=== PATIENT | male | born 1950 | race Caucasian/White ===

== ENCOUNTER 2021-06-29 18:14 | Emergency (ER) | payer MEDICARE, OTHER ==
[2021-06-29 19:42] LABS: CORONAVIRUS COVID-19 NAA NEGATIVE (NEGATIVE)
--- NOTE | 2021-06-29 19:52 | EDM.PDOC ---
ED HPI GENERAL MEDICAL PROBLEM - General Chief Complaint: General Stated Complaint: SOB/SENT FROM [facility] Time Seen by Provider: 06/29/21 19:48 - History of Present Illness INITIAL COMMENTS - FREE TEXT/NARRATIVE: Patient reports chronic dyspnea since COVID-19 in 10/2020 Past month has had head congestion with significant mucus/phlegm Associated coughing with retching at times Has had increased dyspnea due to smoke in the area past few days He went to outpatient provider today hoping to get an inhaler for dyspnea Lab tests were performed which showed worsening of kidney function from 2 days ago, and he was then sent to ED He denies acute illness symptoms Denies vomiting or diarrhea Oral intake has been normal He is currently on treatment with losartan, Metformin, and Flomax He denies use of NSAID medications - Related Data Allergies Allergy/AdvReac Type Severity Reaction Status Date / Time atropine [From ] Allergy Cannot Verified 06/29/21 18:42 Remember chlordiazepoxide Allergy Cannot Verified 06/29/21 18:42 [From Librax (with Remember clidinium)] clidinium Allergy Cannot Verified 06/29/21 18:42 [From Librax (with Remember clidinium)] hyoscyamine [From ] Allergy Cannot Verified 06/29/21 18:42 Remember ibuprofen Allergy Itching Verified 06/29/21 18:42 morphine Allergy Cannot Verified 06/29/21 18:42 Remember phenobarbital [From ] Allergy Cannot Verified 06/29/21 18:42 Remember scopolamine [From ] Allergy Cannot Verified 06/29/21 18:42 Remember Home Meds: Home Meds Losartan [Cozaar] 1 tab PO DAILY 06/29/21 [History] Tamsulosin [Flomax] 1 tab PO DAILY 06/29/21 [History] metFORMIN [Glucophage] 2 tab PO DAILY 06/29/21 [History] Past Medical History Cardiovascular History: Reports: Hypertension Gastrointestinal History: Reports: Other (See Below) Other Gastrointestinal History: partial removal of pancreas, 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 Genitourinary History: Reports: Prostate Disorder Endocrine/Metabolic History: Reports: Diabetes Mellitus, Type 3c - Infectious Disease History Infectious Disease History: Reports: Measles, Mumps, Novel Coronavirus - Past Surgical History GI Surgical History: Reports: Cholecystectomy Social & Family History - Tobacco Use Tobacco Use Status *Q: Never Tobacco User - Caffeine Use Caffeine Use: Reports: Soda - Recreational Drug Use Recreational Drug Use: No ED ROS GENERAL - Review of Systems Review Of Systems: See Below Free Text/Narrative/Comment: Constitutional - no fever Eyes - no eye pain; no visual disturbance ENT - no rhinorrhea; congestion; no epistaxis Cardiovascular - no chest pain Respiratory - shortness of breath; cough Gastrointestinal - no abdominal pain; no nausea; no vomiting; no diarrhea Genitourinary - no dysuria Musculoskeletal - no neck pain; no back pain; no extremity injury Neurological - no headache; no speech disturbance; no weakness ED EXAM, GENERAL - Physical Exam Exam: See Below Free Text/Narrative:: Constitutional - awake; alert; no acute distress Head - no facial swelling or weakness Eyes - extra ocular motion intact; conjunctiva normal ENT - no nasal deformity; no epistaxis; normal phonation Neck - no swelling Respiratory - normal respiratory effort; no crackles or wheezing; no stridor Cardiovascular - regular rhythm; normal rate; S1; S2; grade 1/6 systolic murmur GI/Abdomen - normal bowel sounds; soft; no tenderness; no rebound; no guarding; no mass Musculoskeletal - grossly normal strength and motion; no swelling or deformity Skin - warm; dry Neurologic - normal speech; no weakness Psychiatric - normal mood and affect; memory and attention normal Course - Vital Signs Text/Narrative:: . Considered etiologies included: Chronic dyspnea, cough, allergies, nasal congestion, renal insufficiency, acute kidney injury, dehydration, medication effect Symptoms and examination were discussed Consideration for possible contributing role of losartan in renal impairment was discussed Lab reports provided by patient showed: 06/29/2021: - BUN 45 - Creatinine 3.4 06/27/21: - BUN 35 - Creatinine 2.31 Empiric treatment was provided with IV fluid infusion Repeat imaging panel showed mild improvement in serum creatinine Patient subsequently left ED prior to review by science writer Last Recorded V/S: Last Vital Signs Temp 36.8 C 06/29/21 18:33 Pulse 94 06/29/21 18:33 Resp 20 06/29/21 18:33 BP 130/84 06/29/21 18:33 Pulse Ox 100 06/29/21 18:33 - Orders/Labs/Meds Labs: Laboratory Tests 06/29/21 06/29/21 Range/Units 18:51 21:55 Sodium 138 (136-145) mEq/L Potassium 4.4 (3.5-5.1) mEq/L Chloride 105 (98-107) mEq/L Carbon Dioxide 22 (21-32) mEq/L Anion Gap 15.4 H (5-15) BUN 49 H (7-18) mg/dL Creatinine 3.1 H (0.7-1.3) mg/dL Est Cr Clr Drug Dosing 21.45 mL/min Estimated GFR (MDRD) 20 (>60) mL/min BUN/Creatinine Ratio 15.8 (14-18) Glucose 161 H (70-99) mg/dL Calcium 8.0 L (8.5-10.1) mg/dL Total Bilirubin 0.2 (0.2-1.0) mg/dL AST 16 (15-37) U/L ALT 23 (16-63) U/L Alkaline Phosphatase 120 H (46-116) U/L Total Protein 6.6 (6.4-8.2) g/dl Albumin 3.3 L (3.4-5.0) g/dl Globulin 3.3 gm/dL Albumin/Globulin Ratio 1.0 (1-2) Influenza Type A RNA Negative (NEGATIVE) Influenza Type B RNA Negative (NEGATIVE) SARS-CoV-2 RNA (HERIBERTO) Negative (NEGATIVE) Meds: Medications Discontinued Medications Generic Name Dose Route Start Last Admin Trade Name Freq PRN Reason Stop Dose Admin Albuterol 0 gm 06/29/21 23:10 06/29/21 23:16 Albuterol 6.7 Gm Inhaler INH 06/29/21 23:11 2 puff ONETIME ONE Administration Lactated Ringer's 1,000 mls @ 1,000 mls/hr 06/29/21 20:17 06/29/21 20:32 Ringers, Lactated IV 06/29/21 21:16 1,000 mls/hr .BOLUS ONE Administration Lactated Ringer's 1,000 mls @ 1,000 mls/hr 06/29/21 21:42 06/29/21 21:48 Ringers, Lactated IV 06/29/21 22:41 1,000 mls/hr .BOLUS ONE Administration Departure - Departure Time of Disposition: 21:48 Disposition: Home, Self-Care 01 Clinical Impression: Renal insufficiency, Chronic dyspnea - Discharge Information *PRESCRIPTION DRUG MONITORING PROGRAM REVIEWED*: Not Applicable *COPY OF PRESCRIPTION DRUG MONITORING REPORT IN PATIENT NESTOR: Not Applicable Instructions: Serum Creatinine Test Referrals: Luis Frances MD [Primary Care Provider] - Forms: ED Department Discharge Sepsis Event Note (ED) - Evaluation Sepsis Screening Result: No Definite Risk - Focused Exam Vital Signs: Vital Signs Temp Pulse Resp BP Pulse Ox 06/29/21 18:33 36.8 C 94 20 130/84 100
[2021-06-29] MEDS ORDERED: Lactated Ringers 1,000 ML IV ONE ×2 (20:17→21:42)
[2021-06-29] MEDS ORDERED: Albuterol 6.7 GM Inhaler INH ONE (23:10)
== END 2021-06-29 23:20 | disposition home or self-care (01) ==
LOC: JD.ED 18:14
DX: R06.02 Shortness of breath (principal); I12.9 Hypertensive chronic kidney disease with stage 1 through stage 4 chronic kidney disease, or unspecified chronic kidney disease; E13.22 Other specified diabetes mellitus with diabetic chronic kidney disease; N18.9 Chronic kidney disease, unspecified; Z88.5 Allergy status to narcotic agent; Z88.8 Allergy status to other drugs, medicaments and biological substances; Z79.84 Long term (current) use of oral hypoglycemic drugs; Z79.899 Other long term (current) drug therapy; Z20.822 Contact with and (suspected) exposure to COVID-19
CPT/HCPCS: 0240U; 36415; 80053; 99284; A9270; J7120

== ENCOUNTER 2021-10-25 09:46 | Emergency (ER) | payer MEDICARE, BC ==
[2021-10-25] MEDS ORDERED: Sodium Chloride 0.9% 10 ML Syringe FLUSH PRN (10:55)
[2021-10-25] MEDS ORDERED: Sodium Chloride 0.9% 1,000 ML IV ONE (10:56)
[2021-10-25] MEDS ORDERED: Acetaminophen 325 MG Tab PO ONE ×2 (12:15→17:46)
== END 2021-10-25 17:50 | disposition home or self-care (01) ==
LOC: JD.ED 09:46
DX: R55 Syncope and collapse (principal); N19 Unspecified kidney failure; R00.0 Tachycardia, unspecified; I10 Essential (primary) hypertension; E13.9 Other specified diabetes mellitus without complications; Z79.899 Other long term (current) drug therapy; Z88.5 Allergy status to narcotic agent; Z88.1 Allergy status to other antibiotic agents
CPT/HCPCS: 36415; 70450; 70450-26; 71045; 71045-26; 73080-26-RT; 73080-RT; 80053; 84484; 85025; 93005; 99284-25; A9270-GY; J7030

== ENCOUNTER 2022-01-31 09:14 | Emergency (ER) | payer MEDICARE, BC ==
[2022-01-31] MEDS ORDERED: Sodium Chloride 0.9% 10 ML Syringe FLUSH PRN (09:42)
[2022-01-31] MEDS ORDERED: Sodium Chloride 0.9% 1,000 ML IV SCH (10:30)
[2022-01-31] MEDS ORDERED: Lactated Ringers 1,000 ML IV ONE ×2 (12:52→12:54)
== END 2022-01-31 14:46 | disposition home or self-care (01) ==
LOC: JD.ED 09:14
DX: U07.1 COVID-19 (principal); I10 Essential (primary) hypertension; E11.9 Type 2 diabetes mellitus without complications; Z86.16 Personal history of COVID-19; Z79.899 Other long term (current) drug therapy; Z90.49 Acquired absence of other specified parts of digestive tract; Z88.6 Allergy status to analgesic agent; Z88.5 Allergy status to narcotic agent; Z88.8 Allergy status to other drugs, medicaments and biological substances; Z88.2 Allergy status to sulfonamides
CPT/HCPCS: 36415; 71045; 80053; 84484; 85025; 85379; 86140; 93005; 99285; J3490; J7030; J7120

== ENCOUNTER 2022-10-23 17:46 | Emergency (ER) | payer MEDICARE, BC ==
[2022-10-23] MEDS ORDERED: Sodium Chloride 0.9% 10 ML Syringe FLUSH PRN (18:32)
[2022-10-23 20:12] LABS: CORONAVIRUS COVID-19 NAA NEGATIVE (NEGATIVE)
== END 2022-10-23 22:45 | disposition home or self-care (01) ==
LOC: JD.ED 17:46
DX: R55 Syncope and collapse (principal); J06.9 Acute upper respiratory infection, unspecified; E13.22 Other specified diabetes mellitus with diabetic chronic kidney disease; I12.9 Hypertensive chronic kidney disease with stage 1 through stage 4 chronic kidney disease, or unspecified chronic kidney disease; N18.9 Chronic kidney disease, unspecified; Z86.16 Personal history of COVID-19; Z88.8 Allergy status to other drugs, medicaments and biological substances; Z88.5 Allergy status to narcotic agent; Z88.1 Allergy status to other antibiotic agents; Z79.899 Other long term (current) drug therapy; Z20.822 Contact with and (suspected) exposure to COVID-19
CPT/HCPCS: 0241U; 36415; 71045; 80053; 83880; 84484; 85025; 86140; 87040; 93005; 99284; J3490

== ENCOUNTER 2022-11-19 10:57 | Emergency (ER) | payer MEDICARE, BC ==
[2022-11-19] MEDS ORDERED: Acetaminophen/HYDROcodone 325-5 MG Tab PO ONE (11:52)
[2022-11-19] MEDS ORDERED: Ketorolac 60 MG/2 ML SDV IM ONE (14:27)
[2022-11-19] MEDS ORDERED: HYDROmorphone 1 MG/ML Syringe IM ONE (14:54)
== END 2022-11-19 15:35 | disposition home or self-care (01) ==
LOC: JD.ED 10:57
DX: S22.31XA Fracture of one rib, right side, initial encounter for closed fracture (principal); S46.912A Strain of unspecified muscle, fascia and tendon at shoulder and upper arm level, left arm, initial encounter; S70.02XA Contusion of left hip, initial encounter; I10 Essential (primary) hypertension; E11.9 Type 2 diabetes mellitus without complications; Z88.6 Allergy status to analgesic agent; Z88.8 Allergy status to other drugs, medicaments and biological substances; Z79.899 Other long term (current) drug therapy; Z90.49 Acquired absence of other specified parts of digestive tract; W00.0XXA Fall on same level due to ice and snow, initial encounter
CPT/HCPCS: 71250; 73030; 74176; 96372; 99284; A9270; J1170; 99283

== ENCOUNTER 2023-06-16 13:50 | Emergency (ER) | payer MEDICARE, BC ==
[2023-06-16] MEDS ORDERED: Sodium Chloride 0.9% 10 ML Syringe FLUSH PRN (14:26)
[2023-06-16 15:03] LABS: BASOPHILS PERCENT AUTO 0.5 % (0.0-1.0); EOSINOPHILS ABSOLUTE AUTO 0.4 K/mm3 (0.0-0.4); EOSINOPHILS PERCENT AUTO 5.1 % (0.0-6.0); HEMATOCRIT 25.8 % (42.0-52.0); HEMOGLOBIN 8.6 gm/dl (14.0-18.0); IMMATURE GRAN PERCENT AUTO 1.2 % (0.0-0.4); LYMPHOCYTES PERCENT AUTO 11.3 % (24.0-44.0); MEAN CORPUSCULAR HEMOGLOBIN 30.9 pg (28.0-32.0); MEAN CORPUSCULAR HGB CONC 33.3 g/dl (32.0-36.0); MEAN CORPUSCULAR VOLUME 92.8 fl (83.0-99.0); MEAN PLATELET VOLUME 9.1 fl (9.4-12.4); MONOCYTES ABSOLUTE AUTO 0.7 K/mm3 (0.0-0.8); MONOCYTES PERCENT AUTO 8.1 % (0.0-8.0); NEUTROPHILS ABSOLUTE AUTO 6.3 K/mm3 (1.8-7.7); NEUTROPHILS PERCENT AUTO 73.8 % (41.0-71.0); PLATELET COUNT,PLT 260 K/mm3 (150-400); RED BLOOD CELL COUNT 2.78 M/mm3 (4.52-5.90); WHITE BLOOD CELL COUNT,WBC 8.48 K/mm3 (3.9-11.3)
[2023-06-16 15:18] LABS: A/G RATIO 0.9 (1-2); ALBUMIN 3.2 g/dl (3.4-5.0); ANION GAP 16.2 (5-15); BILIRUBIN TOTAL 0.2 mg/dL (0.2-1.0); BUN/CREATININE RATIO 14.8 (14-18); CALCIUM 8.1 mg/dL (8.5-10.1); CREATININE 4.4 mg/dL (0.7-1.3); EST CRCL DRUG DOSING (CG) 14.68 mL/min; POTASSIUM,K 5.2 mEq/L (3.5-5.1); PROTEIN TOTAL,TP 6.9 g/dl (6.4-8.2)
== END 2023-06-16 16:20 | disposition home or self-care (01) ==
LOC: JD.ED 13:50
DX: I12.9 Hypertensive chronic kidney disease with stage 1 through stage 4 chronic kidney disease, or unspecified chronic kidney disease (principal); D63.1 Anemia in chronic kidney disease; E11.22 Type 2 diabetes mellitus with diabetic chronic kidney disease; N18.9 Chronic kidney disease, unspecified; K21.9 Gastro-esophageal reflux disease without esophagitis; Z86.16 Personal history of COVID-19; Z88.6 Allergy status to analgesic agent; Z88.5 Allergy status to narcotic agent; Z88.8 Allergy status to other drugs, medicaments and biological substances
CPT/HCPCS: 36415; 71046; 80053; 84484; 85025; 93005; 99285; J3490; 93010; 99283

== ENCOUNTER 2024-02-19 12:45 | Emergency (ER) | payer MEDICARE, BC ==
[2024-02-19] MEDS: Acetaminophen 325 MG Tab PO ONE (14:58)
[2024-02-19] MEDS: Lidocaine 1% 10 ML MDV INJECT ONE (14:58)
== END 2024-02-19 15:25 | disposition home or self-care (01) ==
LOC: JD.ED 12:45
DX: S01.01XA Laceration without foreign body of scalp, initial encounter (principal); Z86.16 Personal history of COVID-19; Z88.6 Allergy status to analgesic agent; Z88.5 Allergy status to narcotic agent; Z88.1 Allergy status to other antibiotic agents; Z88.8 Allergy status to other drugs, medicaments and biological substances; W20.8XXA Other cause of strike by thrown, projected or falling object, initial encounter; Y92.009 Unspecified place in unspecified non-institutional (private) residence as the place of occurrence of the external cause
CPT/HCPCS: 12002; 70450; 99283; A9270; 12001; J3490

== ENCOUNTER 2024-10-21 00:43 | Inpatient (IN) | payer MEDICARE, BC ==
[2024-10-21] MEDS: Sodium Chloride 0.9% 500 ML IV ONE (01:28)
[2024-10-21] MEDS: Ondansetron 4 MG/2 ML SDV IVPUSH ONE (01:29)
[2024-10-21 01:33] LABS: BASOPHILS PERCENT AUTO 0.3 % (0.0-1.0); EOSINOPHILS ABSOLUTE AUTO 0.2 K/mm3 (0.0-0.4); EOSINOPHILS PERCENT AUTO 1.4 % (0.0-6.0); HEMATOCRIT 39.3 % (42.0-52.0); HEMOGLOBIN 13.2 gm/dl (14.0-18.0); IMMATURE GRAN ABSOLUTE AUTO 0.04 K/mm3 (0.00-0.05); IMMATURE GRAN PERCENT AUTO 0.4 % (0.0-0.4); LYMPHOCYTES ABSOLUTE AUTO 1.2 K/mm3 (1.0-4.8); LYMPHOCYTES PERCENT AUTO 10.8 % (24.0-44.0); MEAN CORPUSCULAR HGB CONC 33.6 g/dl (32.0-36.0); MEAN CORPUSCULAR VOLUME 95.4 fl (83.0-99.0); MEAN PLATELET VOLUME 9.1 fl (9.4-12.4); MONOCYTES ABSOLUTE AUTO 1.1 K/mm3 (0.0-0.8); MONOCYTES PERCENT AUTO 9.9 % (0.0-8.0); NEUTROPHILS ABSOLUTE AUTO 8.5 K/mm3 (1.8-7.7); NEUTROPHILS PERCENT AUTO 77.2 % (41.0-71.0); PLATELET COUNT,PLT 244 K/mm3 (150-400); RED BLOOD CELL COUNT 4.12 M/mm3 (4.52-5.90); WHITE BLOOD CELL COUNT,WBC 11.06 K/mm3 (3.9-11.3)
[2024-10-21] MEDS: Iopamidol 612 MG/ML 100 ML Bottle IVPUSH ONE (01:49)
[2024-10-21 01:55] LABS: ALBUMIN 4.1 g/dl (3.4-5.0); BILIRUBIN TOTAL 0.5 mg/dL (0.2-1.0); BUN/CREATININE RATIO 12.2 (14-18); CALCIUM 8.3 mg/dL (8.5-10.1); CREATININE 4.5 mg/dL (0.7-1.3); EST CRCL DRUG DOSING (CG) 14.14 mL/min; MAGNESIUM 1.6 mg/dL (1.8-2.4); PROTEIN TOTAL,TP 8.1 g/dl (6.4-8.2)
[2024-10-21 02:01] LABS: INR 1.04
[2024-10-21] MEDS ORDERED: LORazepam 2 MG/ML SDV IVPUSH PRN (02:48)
[2024-10-21] MEDS: Benzocaine 20% Topical Spray UD MUCMEM ONE (03:05)
[2024-10-21] MEDS: Sodium Chloride 0.9% 1,000 ML IV SCH ×2 (03:08→08:10)
[2024-10-21 06:15] LABS: BASOPHILS PERCENT AUTO 0.3 % (0.0-1.0); EOSINOPHILS ABSOLUTE AUTO 0.1 K/mm3 (0.0-0.4); EOSINOPHILS PERCENT AUTO 1.3 % (0.0-6.0); HEMATOCRIT 35.5 % (42.0-52.0); HEMOGLOBIN 11.9 gm/dl (14.0-18.0); IMMATURE GRAN ABSOLUTE AUTO 0.02 K/mm3 (0.00-0.05); IMMATURE GRAN PERCENT AUTO 0.3 % (0.0-0.4); LYMPHOCYTES ABSOLUTE AUTO 0.7 K/mm3 (1.0-4.8); LYMPHOCYTES PERCENT AUTO 8.7 % (24.0-44.0); MEAN CORPUSCULAR HEMOGLOBIN 31.9 pg (28.0-32.0); MEAN CORPUSCULAR HGB CONC 33.5 g/dl (32.0-36.0); MEAN CORPUSCULAR VOLUME 95.2 fl (83.0-99.0); MEAN PLATELET VOLUME 8.9 fl (9.4-12.4); MONOCYTES ABSOLUTE AUTO 0.5 K/mm3 (0.0-0.8); MONOCYTES PERCENT AUTO 6.5 % (0.0-8.0); NEUTROPHILS ABSOLUTE AUTO 6.5 K/mm3 (1.8-7.7); NEUTROPHILS PERCENT AUTO 82.9 % (41.0-71.0); PLATELET COUNT,PLT 184 K/mm3 (150-400); RED BLOOD CELL COUNT 3.73 M/mm3 (4.52-5.90); WHITE BLOOD CELL COUNT,WBC 7.84 K/mm3 (3.9-11.3)
[2024-10-21 06:43] LABS: ALBUMIN 3.4 g/dl (3.4-5.0); BILIRUBIN TOTAL 0.5 mg/dL (0.2-1.0); CREATININE 4.7 mg/dL (0.7-1.3); EST CRCL DRUG DOSING (CG) 13.54 mL/min; MAGNESIUM 1.7 mg/dL (1.8-2.4); POTASSIUM,K 3.3 mEq/L (3.5-5.1); PROTEIN TOTAL,TP 6.7 g/dl (6.4-8.2)
[2024-10-21 06:57] LABS: ANION GAP 15.3 (5-15)
[2024-10-21] MEDS ORDERED: Ondansetron 4 MG Tab.DIS PO PRN (07:12)
[2024-10-21] MEDS ORDERED: Magnesium Sulfate (4.06 MEQ/ML) 5 GM/10 ML SDV IV ONE (08:09)
[2024-10-21] MEDS: Potassium Chloride 10 MEQ in Premix Bag 1 BAG IV SCH (08:18)
[2024-10-21] MEDS ORDERED: Metoprolol Succinate 50 MG Tab.ER PO SCH (09:00)
[2024-10-21] MEDS ORDERED: Tamsulosin 0.4 MG Cap.ER PO SCH (09:00)
[2024-10-21] MEDS ORDERED: Finasteride 5 MG Tab PO SCH (09:00)
[2024-10-21] MEDS: Tamsulosin 0.4 MG Cap.ER PO SCH (09:36)
[2024-10-21] MEDS: Sertraline 50 MG Tab PO SCH (09:36)
[2024-10-21] MEDS: Diatrizoate Meglumine/Diatrizoate Sodium 37% 120 ML Bottle PO ONE (16:54)
[2024-10-21] MEDS: Carvedilol 12.5 MG Tab PO SCH (17:03)
[2024-10-22] MEDS: Sodium Chloride 0.9% 1,000 ML IV SCH (01:13)
[2024-10-22 04:59] LABS: BASOPHILS ABSOLUTE AUTO 0.1 K/mm3 (0.0-0.2); BASOPHILS PERCENT AUTO 0.5 % (0.0-1.0); EOSINOPHILS ABSOLUTE AUTO 0.4 K/mm3 (0.0-0.4); EOSINOPHILS PERCENT AUTO 4.6 % (0.0-6.0); HEMATOCRIT 34.5 % (42.0-52.0); HEMOGLOBIN 11.5 gm/dl (14.0-18.0); IMMATURE GRAN ABSOLUTE AUTO 0.03 K/mm3 (0.00-0.05); IMMATURE GRAN PERCENT AUTO 0.3 % (0.0-0.4); LYMPHOCYTES ABSOLUTE AUTO 1.1 K/mm3 (1.0-4.8); LYMPHOCYTES PERCENT AUTO 11.7 % (24.0-44.0); MEAN CORPUSCULAR HEMOGLOBIN 31.9 pg (28.0-32.0); MEAN CORPUSCULAR HGB CONC 33.3 g/dl (32.0-36.0); MEAN CORPUSCULAR VOLUME 95.6 fl (83.0-99.0); MEAN PLATELET VOLUME 9.4 fl (9.4-12.4); MONOCYTES ABSOLUTE AUTO 1.2 K/mm3 (0.0-0.8); MONOCYTES PERCENT AUTO 13.1 % (0.0-8.0); NEUTROPHILS ABSOLUTE AUTO 6.4 K/mm3 (1.8-7.7); NEUTROPHILS PERCENT AUTO 69.8 % (41.0-71.0); PLATELET COUNT,PLT 188 K/mm3 (150-400); RED BLOOD CELL COUNT 3.61 M/mm3 (4.52-5.90); WHITE BLOOD CELL COUNT,WBC 9.23 K/mm3 (3.9-11.3)
[2024-10-22 05:15] LABS: ANION GAP 14.3 (5-15); BUN/CREATININE RATIO 11.7 (14-18); CALCIUM 7.3 mg/dL (8.5-10.1); CREATININE 5.2 mg/dL (0.7-1.3); EST CRCL DRUG DOSING (CG) 12.24 mL/min; MAGNESIUM 1.8 mg/dL (1.8-2.4); POTASSIUM,K 3.3 mEq/L (3.5-5.1)
== END 2024-10-22 11:50 | disposition home or self-care (01) | DRG 388 ==
LOC: JD.ED 00:43 → JD.MS 02:50
PROVIDERS: ADMIT Surgery; ATTEND Surgery
PROC: 0DH67UZ Insertion of Feeding Device into Stomach, Via Natural or Artificial Opening (ICD-10-PCS; principal; 2024-10-21)
DX: K56.609 Unspecified intestinal obstruction, unspecified as to partial versus complete obstruction (principal); N18.6 End stage renal disease; I12.0 Hypertensive chronic kidney disease with stage 5 chronic kidney disease or end stage renal disease; K86.2 Cyst of pancreas; F15.90 Other stimulant use, unspecified, uncomplicated; R63.0 Anorexia; K21.9 Gastro-esophageal reflux disease without esophagitis; M19.90 Unspecified osteoarthritis, unspecified site; J30.9 Allergic rhinitis, unspecified; E11.22 Type 2 diabetes mellitus with diabetic chronic kidney disease; D63.1 Anemia in chronic kidney disease; E83.42 Hypomagnesemia; E87.6 Hypokalemia; E11.65 Type 2 diabetes mellitus with hyperglycemia; Z99.2 Dependence on renal dialysis; Z68.24 Body mass index [BMI] 24.0-24.9, adult; Z98.84 Bariatric surgery status; Z88.6 Allergy status to analgesic agent; Z88.5 Allergy status to narcotic agent; Z88.8 Allergy status to other drugs, medicaments and biological substances; Z79.1 Long term (current) use of non-steroidal anti-inflammatories (NSAID); Z79.899 Other long term (current) drug therapy; Z86.16 Personal history of COVID-19; Z98.890 Other specified postprocedural states; Z90.89 Acquired absence of other organs; Z90.49 Acquired absence of other specified parts of digestive tract
CPT/HCPCS: 36415; 43752; 74176; 74176-26; 74177; 74177-26; 80048; 80053; 82947; 83605; 83690; 83735; 84100; 84484; 85025; 85027; 85610; 93005; 94760; 96361; 96374; 99285-25; A9270-GY; J2405; J3475; J3480; J7030; Q9963; Q9967

== ENCOUNTER 2024-11-22 13:36 | Emergency (ER) | payer MEDICARE, BC ==
[2024-11-22] MEDS: Magnesium Hydroxide 400 MG/5 ML Susp 30 ML Cup PO ONE (15:00)
== END 2024-11-22 16:25 | disposition home or self-care (01) ==
LOC: JD.ED 13:36
DX: R33.9 Retention of urine, unspecified (principal); I10 Essential (primary) hypertension; M19.90 Unspecified osteoarthritis, unspecified site; E11.9 Type 2 diabetes mellitus without complications; Z88.5 Allergy status to narcotic agent; Z88.8 Allergy status to other drugs, medicaments and biological substances; Z88.6 Allergy status to analgesic agent; Z79.82 Long term (current) use of aspirin; Z79.899 Other long term (current) drug therapy; Z86.16 Personal history of COVID-19; Z90.49 Acquired absence of other specified parts of digestive tract
CPT/HCPCS: 99283; A9270; C1758

== ENCOUNTER 2025-06-22 15:31 | Emergency (ER) | payer MEDICARE, BC ==
[2025-06-22] MEDS ORDERED: Iopamidol 612 MG/ML 100 ML Bottle IVPUSH ONE (16:15)
[2025-06-22 16:18] LABS: BASOPHILS ABSOLUTE AUTO 0.1 K/mm3 (0.0-0.2); BASOPHILS PERCENT AUTO 0.7 % (0.0-1.0); EOSINOPHILS ABSOLUTE AUTO 0.3 K/mm3 (0.0-0.4); EOSINOPHILS PERCENT AUTO 2.8 % (0.0-6.0); IMMATURE GRAN ABSOLUTE AUTO 0.17 K/mm3 (0.00-0.05); IMMATURE GRAN PERCENT AUTO 1.7 % (0.0-0.4); LYMPHOCYTES ABSOLUTE AUTO 0.7 K/mm3 (1.0-4.8); LYMPHOCYTES PERCENT AUTO 6.4 % (24.0-44.0); MEAN PLATELET VOLUME 8.4 fl (9.4-12.4); MONOCYTES ABSOLUTE AUTO 0.8 K/mm3 (0.0-0.8); MONOCYTES PERCENT AUTO 7.6 % (0.0-8.0); NEUTROPHILS ABSOLUTE AUTO 8.2 K/mm3 (1.8-7.7); NEUTROPHILS PERCENT AUTO 80.8 % (41.0-71.0); NRBC ABSOLUTE 0.00 (0.00-0.02); NRBC PERCENT 0.0 % (0.0-0.2); PLATELET COUNT,PLT 271 K/mm3 (150-400); RED BLOOD CELL COUNT 3.86 M/mm3 (4.52-5.90); WHITE BLOOD CELL COUNT,WBC 10.09 K/mm3 (3.9-11.3)
[2025-06-22 16:38] LABS: A/G RATIO 0.9 (1-2); ALANINE AMINOTRANSFERASE,ALT 33.0 U/L (16-63); ASPARTATE AMNIOTRANSFERASE,AST 13.0 U/L (15-37); BILIRUBIN TOTAL 0.3 mg/dL (0.2-1.0); BLOOD UREA NITROGEN,BUN 30.0 mg/dL (7-18); CARBON DIOXIDE,CO2 34.0 mEq/L (21-32); CHLORIDE,CL 98.0 mEq/L (98-107); CREATINE KINASE,CK 80.0 U/L (39-308); CREATININE 4.1 mg/dL (0.7-1.3); EST CRCL DRUG DOSING (CG) 15.29 mL/min; ESTIMATED GFR 15.0 mL/min (>60); GLUCOSE RANDOM 223.0 mg/dL (70-99); INR 1.06; POTASSIUM,K 4.5 mEq/L (3.5-5.1); PROTEIN TOTAL,TP 7.8 g/dl (6.4-8.2); SODIUM,NA 141.0 mEq/L (136-145); TROPONIN I HIGH SENSITIVITY 8.0 pg/mL (<=76)
[2025-06-22] MEDS: Benzocaine 20% Topical Spray UD MUCMEM ONE (18:39)
[2025-06-22] MEDS: Sodium Chloride 0.9% 10 ML Syringe FLUSH ONE (18:40)
[2025-06-22] MEDS: LORazepam 2 MG/ML SDV IVPUSH STA (18:41)
[2025-06-22] MEDS: Ondansetron 4 MG/2 ML SDV IVPUSH ONE (18:41)
== END 2025-06-22 20:41 ==
LOC: JD.ED 15:31
DX: K56.609 Unspecified intestinal obstruction, unspecified as to partial versus complete obstruction (principal); I12.0 Hypertensive chronic kidney disease with stage 5 chronic kidney disease or end stage renal disease; N18.6 End stage renal disease; K21.9 Gastro-esophageal reflux disease without esophagitis; E11.22 Type 2 diabetes mellitus with diabetic chronic kidney disease; Z86.16 Personal history of COVID-19; Z79.899 Other long term (current) drug therapy; Z79.82 Long term (current) use of aspirin; Z88.8 Allergy status to other drugs, medicaments and biological substances; Z88.6 Allergy status to analgesic agent; Z88.5 Allergy status to narcotic agent; Z88.1 Allergy status to other antibiotic agents; Z99.2 Dependence on renal dialysis
CPT/HCPCS: 36415; 43752; 71045; 74018; 74176; 80053; 82550; 83605; 83690; 83735; 84484; 85025; 85610; 96374; 96375; 99285; A9270; J2060; J2405